=== PATIENT | female | born 1990 | race African-American/Black ===

== ENCOUNTER → 2016-06-16 | Outpatient (REF) | payer SELFPAY ==
[2016-06-16 12:45] LABS: BASOPHILS % (AUTO) 0 % (0-2); EOSINOPHILS # (AUTO) 0.3 10^3uL; EOSINOPHILS % (AUTO) 4 % (0-4); LYMPHOCYTES # (AUTO) 1.6 X10^3; MEAN CORPUSCULAR HEMOGLOBIN 27.3 PG (26.0-34.0); MEAN CORPUSCULAR HGB CONC 34.1 g/dL (31.0-37.0); MEAN CORPUSCULAR VOLUME 80 FL (80-100); MEAN PLATELET VOLUME 11.1 FL (6.0-9.5); MONOCYTES # (AUTO) 0.5 X10^3; MONOCYTES % (AUTO) 6 % (3-11); NEUTROPHILS # (AUTO) 5.1 X10^3; NEUTROPHILS % (AUTO) 68 % (51-67); PLATELET COUNT 251 10^3uL (150-450); WHITE BLOOD COUNT 7.48 10^3uL (4.0-11.0)
[2016-06-16 12:57] LABS: ALBUMIN 3.9 g/dL (3.4-5.0); ANION GAP 11.6 MEQ/L (3-15); CALCULATED IONIZED CALCIUM 4.1 mg/dL (3.8-4.6); TOTAL PROTEIN 6.7 g/dL (6.4-8.5)
== END ==
LOC: LAB 10:55
PROVIDERS: ATTEND Nurse Practitioner Family
DX: R10.32 Left lower quadrant pain (principal)
CPT/HCPCS: 80053; 85025; 87088